=== PATIENT | male | born 1935 | race Caucasian/White ===

== ENCOUNTER → 2016-09-19 | Outpatient (REF) | payer MEDICARE, OTHER ==
[2016-09-19 16:34] LABS: BILIRUBIN,URINE Negative (Negative); CLARITY,URINE Cloudy; COLOR,URINE Yellow; GLUCOSE, URINE (UA) Negative (Negative); LEUKOCYTE ESTERASE ,URINE 3+ (Negative); PH,URINE 6.5 (5.0 - 8.0); UROBILINOGEN,URINE 0.2 mg/dL (0.2-1.0)
[2016-09-19 18:02] LABS: AMORPHOUS SEDIMENT,UR 1+ /HPF; RBC,URINE >100 /HPF; URINE CENTRIFUGED VOLUME <10mL Unspun
== END ==
LOC: LAB 16:15
PROVIDERS: ATTEND Family Medicine
DX: R82.99 Other abnormal findings in urine (principal)
CPT/HCPCS: 81003; 81015; 87077; 87088; 87186

== ENCOUNTER → 2016-09-30 | Outpatient (REF) | payer MEDICARE, OTHER ==
[2016-09-30 18:17] LABS: BILIRUBIN,URINE Negative (Negative); CLARITY,URINE Clear; COLOR,URINE Yellow; GLUCOSE, URINE (UA) Negative (Negative); LEUKOCYTE ESTERASE ,URINE Trace (Negative); PH,URINE 5.5 (5.0 - 8.0); UROBILINOGEN,URINE 0.2 mg/dL (0.2-1.0)
[2016-09-30 18:18] LABS: URINE CENTRIFUGED VOLUME 12 mL
== END ==
LOC: LAB 17:53
PROVIDERS: ATTEND Family Medicine
DX: N39.0 Urinary tract infection, site not specified (principal)
CPT/HCPCS: 81003; 81015; 87077; 87088; 87186

== ENCOUNTER → 2016-10-14 | Outpatient (REF) | payer MEDICARE, OTHER ==
[~2016-10-14] MED LIST: BICA50TA4 PO; CIPR-273 PO; GLMP1T PO; GLMP4T PO; LSRT50T PO; METF1000 PO; SIMVASTATIN PO; SMV20T PO; TAMS-8 PO; TETR15DR80; [UNRECOGNIZED DRUG - CODE] PO
[2016-10-14 14:40] LABS: BILIRUBIN,URINE Negative (Negative); CLARITY,URINE Cloudy; COLOR,URINE Yellow; GLUCOSE, URINE (UA) Negative (Negative); UROBILINOGEN,URINE 0.2 mg/dL (0.2-1.0)
[2016-10-14 14:42] LABS: LEUKOCYTE ESTERASE, URINE 2+ (Negative)
[2016-10-14 14:47] LABS: URINE CENTRIFUGED VOLUME 12 mL
== END ==
LOC: LAB 14:30
PROVIDERS: ATTEND Family Medicine
DX: N39.0 Urinary tract infection, site not specified (principal)
CPT/HCPCS: 81003; 81015

== ENCOUNTER → 2016-11-20 | Outpatient (REF) | payer MEDICARE, OTHER ==
[2016-11-20 18:55] LABS: BILIRUBIN,URINE Negative (Negative); CLARITY,URINE Cloudy; COLOR,URINE Yellow; GLUCOSE, URINE (UA) Negative (Negative); PH,URINE 5.5 (5.0 - 8.0); UROBILINOGEN,URINE 0.2 mg/dL (0.2-1.0)
[2016-11-20 21:25] LABS: URINE CENTRIFUGED VOLUME 12 mL
[2016-11-20 21:31] LABS: LEUKOCYTE ESTERASE, URINE 2+ (Negative)
== END ==
LOC: LAB 16:55
PROVIDERS: ATTEND Family Medicine
DX: N39.0 Urinary tract infection, site not specified (principal); Z79.2 Long term (current) use of antibiotics
CPT/HCPCS: 81003; 81015; 87088

== ENCOUNTER → 2016-12-11 | Outpatient (REF) | payer MEDICARE, OTHER ==
[2016-12-12 12:57] LABS: CLARITY,URINE Clear; COLOR,URINE Yellow; GLUCOSE, URINE (UA) Negative (Negative); PH,URINE 5.5 (5.0 - 8.0)
[2016-12-12 12:58] LABS: AMORPHOUS SEDIMENT,UR 1+ /HPF; BILIRUBIN,URINE Negative (Negative); LEUKOCYTE ESTERASE ,URINE 2+ (Negative); URINE CENTRIFUGED VOLUME 12 mL; UROBILINOGEN,URINE 0.2 mg/dL (0.2-1.0)
== END ==
LOC: LAB 17:51
PROVIDERS: ATTEND Family Medicine
DX: N39.0 Urinary tract infection, site not specified (principal)
CPT/HCPCS: 81003; 81015; 87077; 87088; 87186